=== PATIENT | female | born 1965 | race Asian ===

== ENCOUNTER 2023-09-13 08:01 | Emergency (ER) | payer OTHER ==
[2023-09-13 08:29] VITALS: BP 142/80; PULSE 65; RESP 18; TEMP 97.8; BMI 41.5
[2023-09-13] MEDS ORDERED: IBUPROFEN 400 MG TABLET (FP) PO ONE (08:56)
[2023-09-13] MEDS ORDERED: LIDOCAINE 5% TOPICAL PATCH ONE (08:56)
[2023-09-13] MEDS: LIDOCAINE 5% TOPICAL PATCH TP ONE (09:01)
[2023-09-13] MEDS: IBUPROFEN 400 MG TABLET (FP) PO ONE (09:02)
[2023-09-13] MEDS ORDERED: LIDOCAINE PATCH REMOVAL MC ONE (22:00)
== END 2023-09-13 09:04 | disposition home or self-care (01) ==
LOC: FER 08:01
DX: M25.512 Pain in left shoulder (principal); M79.652 Pain in left thigh; V43.52XA Car driver injured in collision with other type car in traffic accident, initial encounter
CPT/HCPCS: 99283-25